=== PATIENT | female | born 1950 | race Caucasian/White ===

== ENCOUNTER 2021-11-05 17:41 | Emergency (ER) | payer MEDICARE, SELFPAY ==
[2021-11-05] VITALS (7 sets, daily range): BP systolic 96–130; BP diastolic 65–87; PULSE 64–79; RESP 17–18; TEMP 36.6; O2SAT 93–98; BMI 27.8
--- NOTE | 2021-11-05 17:49 | XRR_ITS ---
PROCEDURE INFORMATION: Exam: XR Chest Exam date and time: 11/05/2021 6:05 PM Age: 71 years old Clinical indication: Shortness of breath; Additional info: Dyspnea TECHNIQUE: Imaging protocol: Radiologic exam of the chest. Views: 1 view. COMPARISON: No relevant prior studies available. FINDINGS: Lungs: Cardiac silhouette size, and vascularity are somewhat accentuated, likely related to poor inspiration/expansion however clinical correlation for mild CHF should be obtained. Upper lungs are clear. Lung bases are suboptimally assessed. Tiny right basilar linear opacities likely atelectasis-scarring. Patchy opacity is also seen in the lateral left lung base which may represent atelectasis versus developing pneumonia. Follow-up should be obtained. Pleural spaces: See Heart/Mediastinum finding. Heart/Mediastinum: There is a probable hiatal hernia measuring about 7-8 cm. Pleural space: Unremarkable. No pleural effusion. No pneumothorax. As above. Bones/joints: No acute osseous findings. Other findings: Single view was submitted. XR/XR chest 1V portable [id number] IMPRESSION: 1. Accentuated cardiac silhouette size and vascularity. See discussion above. 2. Bibasilar opacities as described. Probable hiatal hernia.
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
[2021-11-05 18:13] LABS: Basophils % 0.2 %; Eosinophils # 0.1 10^3/uL (0.0-0.8); Eosinophils % 1.3 %; Hematocrit 43.6 % (37.0-47.0); Hemoglobin 14.2 g/dL (11.5-15.3); Lymphocytes # 0.8 10^3/uL (0.8-4.8); Lymphocytes % 9.5 %; Mean Corpuscular HGB Conc 32.6 g/dL (30.0-36.0); Mean Corpuscular Hemoglobin 31.2 pg (28.0-34.0); Mean Corpuscular Volume 95.8 fl (81-99); Mean Platelet Volume 10.3 fL (7.4-10.4); Monocytes # 0.6 10^3/uL (0.2-0.9); Monocytes % 7.5 %; Neutrophils # 6.88 10^3/uL (1.8-7.7); Neutrophils % 81.1 %; Nucleated Red Blood Cells % 0 %; Platelet Count 215 10^3/cmm (130-400); Red Blood Count 4.55 10^6/uL (4.1-5.3); White Blood Count 8.5 10^3/uL (4.0-10.0)
[2021-11-05 18:47] LABS: Anion Gap 20.8 (5-19); Blood Urea Nitrogen 20 mg/dL (8-23); Calcium 10.3 mg/dL (8.5-10.5); Carbon Dioxide 23 mmol/L (22-29); Chloride 97 mmol/L (98-107); Creatinine Clr Calc Pharmacy 61.5107; Glucose 114 mg/dL (65-115); NT Pro B Type Natriuretic Pept 121 pg/mL (0-125); Osmolality Calculated 287 mOsm/kg (285-295); Potassium 3.8 mmol/L (3.5-5.1); Sodium 137 mmol/L (136-145)
[2021-11-06 00:16] VITALS: BP 132/78; PULSE 88; RESP 18; O2SAT 94
== END 2021-11-06 00:17 | disposition home or self-care (01) ==
PROVIDERS: Emergency Provider Emergency Medicine
DX: T75.1XXA Unspecified effects of drowning and nonfatal submersion, initial encounter (principal); W16.111A Fall into natural body of water striking water surface causing drowning and submersion, initial encounter
CPT/HCPCS: 36600; 71045; 80048; 82803; 83880; 85025; 99284